=== PATIENT | female | born 1965 | race Caucasian/White ===

== ENCOUNTER 2016-10-18 14:19 | Emergency (ER) | payer OTHER ==
[2016-10-18 14:38] VITALS: BP 132/80; PULSE 93; RESP 16; TEMP 97.7; O2SAT 97
--- NOTE | 2016-10-18 14:53 | EDPHY ---
H & P Stated Complaint: dog bite R thigh, dog utd vac, animal control on scene - Personal History LMP (Females 10-55): Unknown Current Tetanus/Diphtheria Vaccine: Unsure Current Tetanus Diphtheria and Acellular Pertussis (TDAP): Unsure - Medical/Surgical History Hx Asthma: No Hx Chronic Respiratory Disease: No Hx Diabetes: No Hx Cardiac Disease: No Hx Renal Disease: No Hx Cirrhosis: No Hx Alcoholism: No Hx HIV/AIDS: No Hx Splenectomy or Spleen Trauma: No Other PMH: denies - Social History Smoking Status: Never smoked Time Seen by Provider: 10/18/16 14:48 Constitutional: Initial Vital Signs Temperature (C) 36.5 C 10/18/16 14:35 Heart Rate 93 10/18/16 14:35 Respiratory Rate 16 10/18/16 14:35 Blood Pressure 132/80 H 10/18/16 14:35 O2 Sat (%) 97 10/18/16 14:35 O2 Delivery Mode Room Air Allergies/Adverse Reactions: Penicillins Allergy (Verified 10/18/16 14:34) Sulfa (Sulfonamide Antibiotics) Allergy (Verified 10/18/16 14:34) Home Medications: Medication Instructions Recorded Amoxicillin/Clavulanate Pot 875 mg PO BID #14 tab 10/18/16 [Augmentin 875 MG TAB (RX)] Hydrocodone/APAP 5/325 [Jet 1 - 2 each PO Q4-6PRN PRN #20 tab 10/18/16 5/325] Medical Decision Making Procedures: I was asked by Dr. Alexander Smith to repair lacerations to the right thigh from a dog bite. Laceration repair #1. Verbal consent was obtained from the patient. The 1.5 cm laceration on the right posterior lateral thigh was anesthetized using 1% lidocaine with epinephrine. The wound was irrigated with saline, draped and explored to its base with a gloved finger. There were no deep structures involved. No tendon injury was identified. The wound was repaired with 4 0 Ethilon, 2 sutures. The wound repair was simple. The procedure was performed by myself. Laceration repair #2. Verbal consent was obtained from the patient. The less than 1 cm laceration on the right posterior lateral thigh was anesthetized using 1% lidocaine with epinephrine. The wound was irrigated with saline, draped and explored to its base with a gloved finger. There were no deep structures involved. No tendon injury was identified. The wound was repaired with 4 0 Ethilon, 1 suture. The wound repair was simple. The procedure was performed by myself. (aYmel Vanegas) ED Course/Re-evaluation: CHIEF COMPLAINT: Dog bite HISTORY OF PRESENT ILLNESS: The patient is a 51 y/o female arriving with her complaining of a dog bite to her right thigh this afternoon. She was walking along [facility] when a leashed dog bit her right lateral thigh. Animal control is involved and the dog's car customizer reported the animal's vaccinations were up-to-date. She only complains of pain at the site of two puncture wounds on her lateral right thigh. She denies other injuries, weakness , paresthesias, or other complaints. Her last tetanus vaccination was in 2010. She denies other pertinent medical history. PHYSICAL EXAM: HR, BP, O2 Sat, RR. Temp noted General Appearance: Alert, well hydrated, appropriate, and non-toxic appearing. Cardiovascular: Right dorsalis pedis pulse intact. Good capillary refill in extremities. Musculoskeletal: Two puncture wounds to right lateral thigh with surrounding tenderness and normal ROM of right leg. Otherwise all other extremities atraumatic. Neurological: Alert, appropriate, and interactive. Normal sensation and motor function in right leg. Skin: No rashes, good turgor, no nodules on palpation. 1cm superficial laceration to anterolateral right thigh with tiny puncture located more posteriorly. Past medical history: tetanus up-to-date Past surgical history: noncontributory Family history: noncontributory Social history: at beds DIAGNOSTICS/PROCEDURES/CRITICAL CARE TIME: 1cm laceration on right anterolateral thigh sutured by CALOS Vanegas. MEDICAL DECISION MAKING: This is a healthy 51 y/o female presenting with 2 puncture wounds to her right lateral thigh secondary to a dog bite this afternoon. The appropriate animal control resources are already involved. She has tenderness at the site of the wounds, but her exam is otherwise unremarkable. Plan to repair larger more anterior laceration and place patient on prophylactic antibiotics. We discussed her penicillin allergy as Augmentin is the best antibiotic to cover the possible infections from a dog bite. She took penicillin once in high school and had a mild rash, but she was never sure if it was due to the penicillin. She is willing to try the Augmentin with specific cautions on when to stop it if she develops a reaction. She is comfortable with this plan. ( Alexander Smith) - Data Points Medications Given: Discontinued Medications Amoxicillin/Clavulanate Potassium (Augmentin 875mg) 875 mg PO EDNOW ONE PRN Reason: Protocol Stop: 10/18/16 15:10 Last Admin: 10/18/16 15:19 Dose: 875 mg Departure - Departure Disposition: Home, Routine, Self-Care Clinical Impression: Dog bite of thigh Qualifiers: Encounter type: initial encounter Laterality: right Qualified Code(s): S71.151A - Open bite, right thigh, initial encounter Condition: Good Instructions: Animal Bite (ED) Additional Instructions: 1. Take Augmentin as prescribed. Be sure to complete entire prescription. If you develop symptoms of allergic reaction including rash, difficulty breathing, or airway swelling, discontinue the Augmentin and return to the ED. 2. Return to the ED in 7-10 days for suture removal. 3. Return sooner if you develop dramatic increasing in redness, swelling, warmth , or pain at wound sites or fever. Referrals: Eric Meléndez MD [Primary Care Provider] - As per Instructions Prescriptions: Amoxicillin/Clavulanate Pot [Augmentin 875 MG TAB (RX)] 875 mg PO BID #14 tab Hydrocodone/APAP 5/325 [Jet 5/325] 1 - 2 each PO Q4-6PRN PRN #20 tab PRN Reason: Pain, Moderate Report Scribed for: Alexander Smith Report Scribed by: Shalonda Tee Date of Report: 10/18/16 Time of Report: 14:57
[2016-10-18] MEDS ORDERED: AMOXICILLIN/CLAVULANATE POT 875/125 MG TAB PO ONE (15:09)
== END 2016-10-18 16:35 | disposition home or self-care (01) ==
PROC: 0HQHXZZ Repair Right Upper Leg Skin, External Approach (ICD-10-PCS; principal; 2016-10-18)
DX: S71.151A Open bite, right thigh, initial encounter (principal); W54.0XXA Bitten by dog, initial encounter; Y92.410 Unspecified street and highway as the place of occurrence of the external cause; Y99.8 Other external cause status; Y93.01 Activity, walking, marching and hiking

== ENCOUNTER → 2017-02-24 | Outpatient (CLI) | payer OTHER | LOC: FIMAGING 13:51 | PROVIDERS: ATTEND Obstetrics & Gynecology | DX: Z12.31 Encounter for screening mammogram for malignant neoplasm of breast (principal) | CPT/HCPCS: G0202 ==